=== PATIENT | male | born 1970 | race Caucasian/White ===

== ENCOUNTER 2023-08-30 21:03 | Emergency (ER) | payer OTHER, SELFPAY ==
--- NOTE | ~2023-08-30 | XR_ITS ---
AP and lateral views of the left tibia/fibula Clinical History: Laceration Findings: No acute fracture or dislocation is seen. Osseous alignment is anatomic. Joint spaces are p reserved without significant erosive or degenerative change. Soft tissues are unremarkable. Impression: Unremarkable left tib-fib radiographs. Reviewed, dictated and finalized at [facility]. Impression: Unremarkable left tib-fib radiographs.
[2023-08-30 21:05] VITALS: BP 138/87; PULSE 55; RESP 16; TEMP 36.7; O2SAT 99
--- NOTE | 2023-08-30 21:46 | ED.WOUNDLAC ---
HPI - Wound/Laceration General Chief Complaint: Wound/Laceration Stated Complaint: Left glez lac Time Seen by Provider: 08/30/23 21:39 History of Present Illness HPI narrative: 53-year-old male presents to emergency department for laceration to his left anterior glez that occurred just prior to arrival. Patient states he was picking up cement pay for when 1 broke and hit his glez. Last Tdap was 4 years ago. Mild oozing. No other injuries acquired. Related Data Allergies Allergy/AdvReac Type Severity Reaction Status Date / Time No Known Allergies Allergy Verified 08/30/23 21:07 Review of Systems Review of Systems: CONSTITUTIONAL: Denies fever, chills, or sweats. EYES: Denies visual changes, redness, or discharge. ENT: Denies rhinorrhea, congestion, sore throat, or otalgia. CARDIOVASCULAR: Denies chest pain, palpitations, or edema. RESPIRATORY: Denies cough or dyspnea. GASTROINTESTINAL: Denies abdominal pain, nausea, vomiting, or diarrhea. GENITOURINARY: Denies dysuria or hematuria. SKIN: See HPI MUSCULOSKELETAL: Denies back pain, joint pain, or myalgia. NEUROLOGIC: Denies headache, numbness, or weakness. PSYCHIATRIC: Denies anxiety or depression. Exam Narrative: GENERAL: Well-appearing, well-nourished, and in no acute distress. HEAD: Normocephalic, atraumatic. EXTREMITIES: Normal range of motion. No edema. SKIN: LLE: 2cm laceration to the distal tibia with flap and mild oozing. Just inferior to this is a skin avulsion with mild oozing. No deep structures or foreign bodies visualized. NEURO: No focal deficits. Alert and oriented x3 Course Vital Signs Vital signs: Vital Signs Temperature 98.1 F 08/30/23 21:05 Pulse Rate 55 L 08/30/23 21:05 Respiratory Rate 16 08/30/23 21:05 Blood Pressure 138/87 08/30/23 21:05 Pulse Oximetry 99 08/30/23 21:05 Oxygen Delivery Room Air 08/30/23 21:05 Temperature 98.1 F 08/30/23 21:05 Pulse Rate 55 L 08/30/23 21:05 Respiratory Rate 16 08/30/23 21:05 Blood Pressure 138/87 08/30/23 21:05 Pulse Oximetry 99 08/30/23 21:05 Oxygen Delivery Room Air 08/30/23 21:05 Procedures Laceration Laceration 1: Date: 08/30/23 Time: 23:35 Site: lower extremity Side (If applicable): left Size (cm): 2 Description: linear Depth: simple, single layer Local Anesthetic: lidocaine 1% and with epi Amount of anesthesia used (mL): 3 Pre-repair: wound explored, irrigated and irrigated extensively ====== Skin Level ====== Skin layer closed with: nylon Size (cm): 4-0 Number of sutures: 4 Technique: simple, interrupted ====== Subcutaneous Layer ====== ====== Muscle Layer ====== ====== Tendon Layer ====== MDM - Wound/Laceration MDM Narrative Medical decision making narrative: 53-year-old male presents to the emergency department for a laceration to his left glez that occurred just prior to arrival. Triage vitals stable. Exam significant for the above. Tdap is up-to-date. X-ray shows no acute osseous abnormality or foreign body. Laceration irrigated extensively with normal saline, adequate anesthesia with lidocaine and 4 sutures placed without complications. Advised suture removal in 7 days. Discussed wound care and strict ED return precautions. He is agreeable to plan verbalized understanding. Discharged in stable condition. Discharge Plan Discharge Clinical Impression: Laceration Patient Disposition: Home, Self-Care Condition: Stable Instructions: Antibiotic Form, Laceration (ED) Additional Instructions: Your evaluated in the emergency department for a laceration. Four stitches were placed in your leg. Please get these removed in 7 days by her primary care provider, ER or urgent care. Return to the emergency department if he develops signs of infection including fever, surrounding redness or pus like drainage, or ot
== END 2023-08-30 23:53 | disposition home or self-care (01) ==
PROVIDERS: Emergency Provider Physician Assistant; PCP Physician Assistant
DX: S81.812A Laceration without foreign body, left lower leg, initial encounter (principal); W20.8XXA Other cause of strike by thrown, projected or falling object, initial encounter
CPT/HCPCS: 12001; 73590; 99283